=== PATIENT | female | born 1980 | race Caucasian/White ===

== ENCOUNTER 2018-11-07 12:33 | Day surgery (SDC) | payer MEDICAID ==
[2018-11-07] VITALS (12 sets, daily range): BP systolic 114–150; BP diastolic 58–78; PULSE 62–75; RESP 13–18; Ht 157.5 cm; Wt 82.5 kg
[~2018-11-07] VITALS: Ht 157.5 cm; Wt 82.5 kg
[~2018-11-07 12:33] MED LIST: HYDR25TA6 PO; IBUP100O28 PO; METF-849 PO
--- NOTE | 2018-11-07 14:22 | PREAC ---
Date/Time of Note Date/Time of Note DATE: 11/07/18 TIME: 14:21 Anesthesia Eval and Record Evaluation Time Pre-Procedure Interview DATE: 11/07/18 TIME: 14:21 Age 37 Sex female NPO: 8 hrs Preoperative diagnosis sterilization Planned procedure laproscopic tubal ligation Past Medical History Past Medical History: Includes Cardio: HTN Endo: Diabetes Surgery & Anesthesia Issues No known issue Meds Anticoagulation: No Beta Bassam within 24 hr: No Reason Beta Bassam not given: Hypoglycemia Reported Medications Hydrochlorothiazide* (Hydrochlorothiazide*) 25 Mg Tab, 25 MG PO DAILY, #30 TAB 11/06/18 Metformin* (Glucophage*) 500 Mg Tab, 500 MG PO BID, #30 TAB 11/06/18 Discontinued Reported Medications Ibuprofen (Ibuprofen) 100 Mg/5 Ml Oral.susp, 200 MG PO PRN 02/15/14 Meds reviewed: Yes Allergies Coded Allergies: No Known Allergy (Unverified , 11/07/18) Allergies Reviewed: Yes Labs/Studies Labs Reviewed: Reviewed by anesthesiologist Result Diagram: 11/07/18 1325 Laboratory Tests 11/07/18 13:25 Blood Bank Test 11/07/18 13:25 Blood Type O POSITIVE test: Negative Pre-procedure Exam Last vitals Vital Signs Date Temp Pulse Resp B/P (MAP) Pulse Ox O2 O2 Flow FiO2 Time Delivery Rate 11/07/18 98.2 75 18 150/78 100 Room Air 13:36 (102) Airway: Adequate mouth opening, Adequate thyromental dist Mallampati: Mallampati IV Teeth: Normal Lung: Normal Heart: Normal ASA Physical Status ASA physical status: 2 Emergency: None Pre-operative Attestations Prior to commencing anesthesia and surgery, the patient was re-evaluated, there was verification of: *The patient's identity *The results of appropriate recent lab work and preoperative vital signs *The above evaluation not changing prior to induction *Anesthetic plan, risk benefits, alternative and complications discussed with patient/family; questions answered; patient/family understands, accepts and wishes to proceed. SLIME ARIAS DO Nov 07, 2018 14:22
[2018-11-07] MEDS ORDERED: FENTAnyl 50 MCG/ML VIAL ONE (14:25)
[2018-11-07] MEDS ORDERED: LIDOCAINE 2% (SDV) 5 ML INJ ONE (14:25)
[2018-11-07] MEDS ORDERED: ROCURONIUM 50 MG INJ ONE (14:25)
[2018-11-07] MEDS ORDERED: PROPOFOL 20 ML ONE (14:25)
--- NOTE | 2018-11-07 14:30 | HP ---
DATE OF ADMISSION: 11/07/2018 HISTORY OF PRESENT ILLNESS: This is a 37-year-old 3, para 3. Multiparity, desires steriliza tion. PAST MEDICAL HISTORY: Diabetes and hypertension. PAST SURGICAL HISTORY: Two previous sections. ALLERGIES: NKDA. PHYSICAL EXAMINATION: VITAL SIGNS: Stable. GENERAL: Normal. ABDOMEN: Not tender, not distended. GENITAL: Exam deferred. ASSESSMENT AND PLAN: A 37-year-old 3, para 3, desires voluntary sterilization. The patient was consented for laparoscopic bilateral tubal ligation. Patient understands that given the history of 2 previous C-sections, it might not be doable laparoscopically to perform this case and it may end up in the open laparotomy due to adhesions. Patient understands the concept and signed the consent. Risks and benefits and alternatives discussed with the patient. Dictated By: TONI VALLE/GRAEME Conf#: [id number] DID#: [id number]
[2018-11-07] MEDS ORDERED: ROPIVACAINE 0.5 % 30 ML VIAL ONE (14:32)
[2018-11-07] MEDS ORDERED: CEFAZOLIN 1 GM INJ ONE (14:39)
[2018-11-07] MEDS ORDERED: ONDANSETRON 4 MG INJ ONE ×2 (14:41→15:24)
[2018-11-07] MEDS ORDERED: SUGAMMADEX SODIUM 200 MG/2 ML VIAL IV ONE (15:08)
[2018-11-07] MEDS ORDERED: EPINEPHrine 100 MCG/10 ML SYG IV ONE (15:16)
[2018-11-07] MEDS ORDERED: HYDROmorphONE 1 MG/5 ML IV SYRINGE IV ONE (15:24)
--- NOTE | 2018-11-07 15:29 | PAC ---
Date/Time of Note Date/Time of Note DATE: 11/07/18 TIME: 15:28 Post-Anesthesia Notes Post-Anesthesia Note Last documented vital signs Vital Signs Date Temp Pulse Resp B/P (MAP) Pulse Ox O2 O2 Flow FiO2 Time Delivery Rate 11/07/18 98 70 18 130/65 100 Room Air 1530 Activity: WNL Respiratory function: WNL Cardiovascular function: WNL Mental status: Baseline Pain reasonably controlled: Yes Hydration appropriate: Yes Nausea/Vomiting absent: Yes SLIME ARIAS DO Nov 07, 2018 15:29
[2018-11-07] MEDS ORDERED: HYDROmorphONE 1 MG/5 ML IV SYRINGE IV PRN ×2 (15:30)
--- NOTE | 2018-11-07 15:37 | OPR ---
DATE OF OPERATION: 11/07/2018 PREOPERATIVE DIAGNOSIS: Multiparity, desires sterilization. POSTOPERATIVE DIAGNOSIS: Multiparity, desires sterilization. OPERATION PERFORMED: Laparoscopic bilateral tubal ligation,. ATTENDING: Toni Asencio MD ANESTHESIOLOGIST: Dr. Medley. ANESTHESIA: General. COMPLICATIONS: None. ESTIMATED BLOOD LOSS: Minimal. TECHNIQUE: The patient was taken to the operating room where general anesthesia was found to be adeq uate. The patient was placed in dorsal lithotomy position and after prep and drape, a weighted specu lum was placed inside the vaginal vault. Anterior lip of the cervix was grasped by single-tooth caroline culum. Cervix was dilated by Jasso dilators. HUMI was inserted and fixed in place. Then, attention was turned to abdominal field. A 1 cm incision was made above the umbilicus. First trocar was inse rted under direct visualization of the camera. Intraabdominal cavity was closed using mita. 10 cm from the first one on the left side under direct visualization of the camera. Both tubes were identified. Midportion of both tubes grasped, cauterized in the length of 2 cm. Pictures taken. G as removed. Instruments removed under direct visualization of the camera. The patient HUMI was [place]. The skin incision was closed using 3-0 Monocryl sutures. Dermabond was placed on top of the in cision. The patient tolerated the procedure well and was transferred to recovery room in stable cond ition. There was no complication regarding this surgery. Dictated By: TONI VALLE/GRAEME Conf#: [id number] DID#: [id number]
[2018-11-07] MEDS ORDERED: ONDANSETRON 4 MG INJ IV PRN (16:00)
--- NOTE | 2018-11-07 16:12 | NUR ---
PACU NOTES: PATIENT AWAKE AND ALERT. S/P BTL W/ LAP SITE X2 W/ DERMA MOHAN, NO DRAIN, COMPLAIN OF PAIN MEDICATED WITH DILAUDID IV, ZOFRAN 4 MG IV, TOLERATED PO FLUIDS. W/ PRESCRIPTION AND FOLLOW UP W/ DR. CUENCA TO CALL FOR APPOINTMENT. FAMILY NOTIFIED OF TRANSFER TO [facility]. RELIEVED FROM PAIN.
--- NOTE | 2018-11-07 18:53 | NUR ---
1637H: Received from Recovery, sleepy, oriented to person place time and situation. 2 abdominal incision sites dressed w/ dermabond clean dry intact. 1745H: Able to walk to the bathroom w/ 2 person assist. Verbalized feeling dizzy, blood sugar checked 120 mg/dl. Provided apple juice. 1830H: Patient states feeling better after drinking apple juice and eating clinton crackers. Discharge instructions provided by RN Isis in arabic. Emphasized to call the clinic in [facility] to make an appointment for follow up. Verbalized understanding of health teachings. 1847H: Discharge home in stable condition per wheelchair, accompanied by and mother.
== END 2018-11-07 18:47 | disposition home or self-care (01) ==
LOC: SDS 12:33
PROVIDERS: ATTEND Obstetrics & Gynecology
DX: Z30.2 Encounter for sterilization (principal); E11.9 Type 2 diabetes mellitus without complications; I10 Essential (primary) hypertension
CPT/HCPCS: 58670; 82962; 84703; 85025; 86850; 86900; 86901; J0690; J1170; J2405; J2795; J3010; Z7610; J0171